=== PATIENT | male | born 1990 | race Caucasian/White ===

== ENCOUNTER 2016-09-04 19:56 | Emergency (ER) | payer MEDICAID ==
[~2016-09-04] VITALS: Ht 162.6 cm; Wt 81.0 kg
[2016-09-04 19:59] VITALS: Ht 162.6 cm; Wt 81.0 kg
[2016-09-04] MEDS ORDERED: ACETAMINOPHEN 325 MG TAB PO ONE (21:30)
--- NOTE | 2016-09-04 21:32 | ERA ---
ER Documentation Chief Complaint Date/Time DATE: 09/04/16 TIME: 21:29 Chief Complaint dizziness, abd pain. vomiting chest wall pain everytime he vomits today HPI This is a 26-year-old male Brazilian-speaking presenting with a chief complaint of chest pain 2 days. Claims radiates to his left arm. Patient is also complaining of dizziness. No syncope or presyncope. States that he does not drink caffeine and has been well-hydrated. States that the dizziness is not related to motion. Patient has no other complaints. Denies any aggravating/ relieving factors, taking medications to relieve the symptoms, or similar symptoms in the past. Denies personal or family medical history, sick contacts, recent travel, or recent surgeries/antibiotic use. Vaccination status is up to date. [employer] was the mechanical engineering technician. ROS All systems reviewed and are negative except as per history of present illness. Medications Home Meds Active Scripts Ibuprofen* (Motrin*) 400 Mg Tab, 400 MG PO Q6H Y for PAIN AND OR ELEVATED TEMP, #30 TAB Prov:ANN-MARIE ALDANA PA-C 09/04/16 Allergies Allergies: Coded Allergies: No Known Allergy (Unverified , 02/27/14) PMhx/Soc Hx Alcohol Use: No Hx Substance Use: No Hx Tobacco Use: No Physical Exam Vitals Vital Signs Date Time Temp Pulse Resp B/P Pulse Ox O2 Delivery O2 Flow Rate FiO2 09/04/16 19:59 98.1 71 20 139/85 98 Physical Exam Const: Well-appearing 26-year-old male in no acute distress. Head: Atraumatic Eyes: Normal Conjunctiva. No nystagmus. PERRLA, EOMI bilaterally. ENT: Normal External Ears, Nose and Mouth. Neck: Full range of motion..~ No meningismus. Resp: Clear to auscultation bilaterally Cardio: Regular rate and rhythm, no murmurs. No murmur with Valsalva or hand supervising film or videotape editor. Abd: Soft, non tender, non distended. Normal bowel sounds Skin: No petechiae or rashes Back: No midline or flank tenderness Ext: No cyanosis, or edema. Cap refill less than 2 seconds. Neur: Awake and alert. Neurovascularly intact bilaterally. Psych: Normal Mood and Affect Results 24 hrs Current Medications Medications (Trade) Dose Ordered Sig/Katharine Route PRN Reason Start Time Stop Time Status Last Admin Dose Admin Acetaminophen (Tylenol Tab) 650 mg ONCE ONCE PO 09/04/16 21:30 09/04/16 21:31 DC 09/04/16 22:21 Procedures/MDM This is an otherwise healthy 26-year-old male presenting with 2 days of chest pain and dizziness as described in history and physical examination. EKG was taken and read by me as normal axis, no T-wave inversions, no ST elevation or depression and regular rate and rhythm with good baseline. My attending read the EKG is unremarkable. Patient was given acetaminophen in the ED with moderate relief of chest pain symptoms. Due to unremarkable EKG a chest x-ray was ordered to rule out any anatomical pathologies. Chest x-ray was read by the radiologist given the following impression: Unremarkable The current most likely diagnosis is costochondritis versus atypical chest pain of unknown etiology. SULEMA score was < 3. At this time I do not suspect the chest pain to be due to an acute coronary syndrome, pericarditis, aortic dissection, pulmonary embolism, pneumothorax, esophageal tear/rupture, pneumonia or pancreatitis. I have spoke with the patient regarding their condition and future management. They have verbally responded that they understand their status and treatment plan. The patients vitals are stable, and their current condition is appropriate for discharge. The patient will be given discharge instructions with return precautions. Departure Diagnosis: Primary Impression: Atypical chest pain Additional Impression: Costochondritis Condition: Stable Additional Instructions: Follow up with your PCP within the next 1-3 days for a more thorough evaluation and a possible referral to a specialist. Return the the emergency department immediately if symptoms worsen or change. If you have any questions regarding medications, ask your pharmacist or us before you leave. If any adverse reactions occur while taking your medications, discontinue the treatment and return to the emergency department immediately. Take your medications as directed, and complete the entire course of treatment. ANN-MARIE ALDANA PA-C Sep 04, 2016 21:32
--- NOTE | 2016-09-04 23:09 | RADRPT ---
PROCEDURE: CHEST - 2 VIEW CLINICAL INDICATION: 26-year-old male with chest pain. TECHNIQUE: PA and lateral views of the chest were performed. The images were reviewed on a PACS w orkstation. COMPARISON: Chest x-ray February 27, 2014. FINDINGS: The cardiomediastinal silhouette has a normal appearance. There is no evidence for an infiltrate. T he pulmonary vascularity is within normal limits. There is no evidence for pneumothorax or pneumomed iastinum. The osseous structures are intact. IMPRESSION: No evidence for active cardiopulmonary disease. .Nahum Benz MD, Date Time Electronically viewed and signed by .Nahum Benz MD, on 09/04/2016 23:09 .Oscar/
[2016-09-04] MEDS ORDERED: IBUP400T22 PO (23:15)
== END 2016-09-04 23:41 | disposition home or self-care (01) ==
LOC: FTE 19:56
DX: R07.89 Other chest pain (principal); M94.0 Chondrocostal junction syndrome [Tietze]
CPT/HCPCS: 71020; Z7502; Z7610

== ENCOUNTER 2018-06-23 22:25 | Emergency (ER) | payer MEDICAID ==
[~2018-06-23] VITALS: Ht 157.5 cm; Wt 80.6 kg
[~2018-06-23 22:25] MED LIST: IBUP-1561 PO
[2018-06-23 22:27] VITALS: Ht 157.5 cm; Wt 80.6 kg
[2018-06-24] MEDS ORDERED: KETOROLAC 30 MG INJ IM STA (01:13)
[2018-06-24] MEDS ORDERED: IBUP-1542 PO (01:51)
[2018-06-24] MEDS ORDERED: ACET-141 PO (01:51)
[2018-06-24] MEDS ORDERED: OFLO5DRO7 LEFT EAR (01:51)
--- NOTE | 2018-06-24 01:52 | ERD ---
ER Documentation Chief Complaint Chief Complaint C/O LT EAR PAIN X1 WEEK, STATES FEELS COLD ROS All systems reviewed and are negative except as per history of present illness. Medications Home Meds Active Scripts Ofloxacin Otic (Ofloxacin Otic) 5 Ml Drops, 5 DROP LEFT EAR BID for left ear infection for 10 Days, #1 BOTTLE Prov:ANN-MARIE MYRICK DO 06/24/18 Ibuprofen* (Motrin*) 600 Mg Tab, 600 MG PO Q6H PRN for PAIN AND OR ELEVATED TEMP, #30 TAB Prov:ANN-MARIE MYRICK DO 06/24/18 Acetaminophen* (Acetaminophen*) 500 MG Extra Strength Tablet, 500 MG PO Q4H PRN for PAIN AND OR ELEVATED TEMP, #30 TAB Prov:ANN-MARIE MYRICK DO 06/24/18 Ibuprofen* (Motrin*) 400 Mg Tab, 400 MG PO Q6H PRN for PAIN AND OR ELEVATED TEMP, #30 TAB Prov:ANN-MARIE ALDANA PA-C 09/04/16 Allergies Allergies: Coded Allergies: No Known Allergy (Unverified , 02/27/14) PMhx/Soc Medical and Surgical Hx: pt denies Medical Hx, pt denies Surgical Hx Hx Alcohol Use: No Hx Substance Use: No Hx Tobacco Use: No Smoking Status: Never smoker Physical Exam Vitals Vital Signs Date Temp Pulse Resp B/P (MAP) Pulse Ox O2 O2 Flow FiO2 Time Delivery Rate 06/24/18 97.6 73 17 132/70 98 Room Air 02:03 (90) 06/23/18 97.8 73 18 144/92 98 22:27 (109) Physical Exam Const: No acute distress Head: Atraumatic Eyes: Normal Conjunctiva ENT: Normal External Ears, Nose and Mouth. Neck: Full range of motion. No meningismus. Resp: Clear to auscultation bilaterally Cardio: Regular rate and rhythm, no murmurs Abd: Soft, non tender, non distended. Normal bowel sounds Skin: No petechiae or rashes Back: No midline or flank tenderness Ext: No cyanosis, or edema Neur: Awake and alert Psych: Normal Mood and Affect Results 24 hrs Current Medications Medications Dose Sig/Katharine Start Time Status Last (Trade) Ordered Route PRN Stop Time Admin Dose Reason Admin Ketorolac 30 mg ONCE STAT 06/24/18 DC 06/24/18 Tromethamine IM 01:13 01:22 (Toradol) 06/24/18 01:14 Departure Diagnosis: Primary Impression: Left ear pain Condition: Fair Patient Instructions: Understanding Outer Ear Problems, Ofloxacin Ear drops, solution Referrals: [facility] YOU HAVE RECEIVED A MEDICAL SCREENING EXAM AND THE RESULTS INDICATE THAT YOU DO NOT HAVE A CONDITION THAT REQUIRES URGENT TREATMENT IN THE EMERGENCY DEPARTMENT. FURTHER EVALUATION AND TREATMENT OF YOUR CONDITION CAN WAIT UNTIL YOU ARE SEEN IN YOUR DOCTORS OFFICE WITHIN THE NEXT 1-2 DAYS. IT IS YOUR RESPONSIBILITY TO MAKE AN APPOINTMENT FOR FOLOW-UP CARE. IF YOU HAVE A PRIMARY DOCTOR --you should call your primary doctor and schedule an appointment IF YOU DO NOT HAVE A PRIMARY DOCTOR YOU CAN CALL OUR PHYSICIAN REFERRAL HOTLINE AT IF YOU CAN NOT AFFORD TO SEE A PHYSICIAN YOU CAN CHOSE FROM THE FOLLOWING COMMU [facility] [address] [facility] [address] [facility] [address] [facility] [address] [facility] [address] [facility] [facility]. [address] Additional Instructions: Llame al doctor OFELIA y teofilo susannah MATEO PARA DENTRO DE 1-2 VASQUEZ.Dgale a la secretaria que nosotros le instruimos hacer esta mateo.Avise o llame si schwartz condicin se empeora antes de la mateo. Regresa aqui si peor o no mejor. ANN-MARIE MYRICK DO June 24, 2018 01:52
[2018-06-24 02:03] VITALS: BP 132/70; PULSE 73; RESP 17
== END 2018-06-24 02:03 | disposition home or self-care (01) ==
LOC: FTE 22:25
DX: H92.02 Otalgia, left ear (principal)
CPT/HCPCS: 96372; J1885; Z7502